=== PATIENT | female | born 1975 | race Caucasian/White ===

== ENCOUNTER 2023-03-18 18:00 | Emergency (ER) | payer BC, OTHER ==
[2023-03-18] MEDS ORDERED: predniSONE 10 MG Tab ONE (18:40)
== END 2023-03-18 18:42 | disposition home or self-care (01) ==
LOC: LB.ED 18:00
DX: L24.7 Irritant contact dermatitis due to plants, except food (principal)
CPT/HCPCS: 99282; J7512